=== PATIENT | female | born 1970 | race Caucasian/White ===

== ENCOUNTER 2021-04-11 01:25 | Emergency (ER) | payer OTHER ==
[2021-04-11 01:40] VITALS: BP 111/79; PULSE 79; TEMP 97.6; BMI 28.5
[2021-04-11] MEDS ORDERED: LIDOCAINE 5% TOPICAL PATCH TP ONE (02:19)
[2021-04-11] MEDS ORDERED: ACETAMINOPHEN 325 MG TABLET (FP) PO ONE (02:19)
[2021-04-11] MEDS ORDERED: ACETAMINOPHEN 325 MG TABLET (FP) ONE (02:23)
[2021-04-11] MEDS ORDERED: LIDOCAINE PATCH REMOVAL MC ONE (15:00)
== END 2021-04-11 04:10 | disposition home or self-care (01) ==
LOC: JER 01:25
DX: M54.6 Pain in thoracic spine (principal)
CPT/HCPCS: 71046-TC-FY; 71101-TC-RT-FY; 99283-25